=== PATIENT | male | born 1960 | race Caucasian/White ===

== ENCOUNTER 2016-08-20 18:18 | Emergency (ER) | payer MEDICARE, OTHER ==
[~2016-08-20 18:18] MED LIST: ASPIR 8181 MG PO; LORTAB 5-325 M1 EACH PO; LYRICA100 MG PO; METOPROLOL SUCC25 MG PO; PLAVIX 75 MG TA75 MG PO; PROAIR HFA8.5 GM INH; PROTONIX40 MG PO; ZOFRAN4 MG PO
[2016-08-20 20:10] LABS: HEMOGLOBIN 15.5 gm/dl (14.0-17.5); RED BLOOD COUNT 4.98 M/UL (4.20-5.50); WHITE BLOOD COUNT 8.3 K/UL (4.5-11.0)
[2016-08-20 20:35] LABS: BUN/CREATININE RATIO 11 (0-10)
[2017-03-04] MEDS ORDERED: ALBUTEROL0.63 MG/3 INH (01:25)
[2017-03-04] MEDS ORDERED: VENTOLIN HFA 66.7 GM INH (01:26)
[2017-03-04] MEDS ORDERED: LIPITOR TAB 1010 MG PO (13:33)
[2017-03-04] MEDS ORDERED: PLAVIX 75 MG TA75 MG PO (13:33)
== END 2016-08-21 01:04 | disposition home or self-care (01) ==
LOC: ER1 18:18
PROVIDERS: Physician Assistant
DX: R07.9 Chest pain, unspecified (principal); J10.1 Influenza due to other identified influenza virus with other respiratory manifestations; R11.0 Nausea; R06.02 Shortness of breath; I25.2 Old myocardial infarction; I10 Essential (primary) hypertension; Z88.0 Allergy status to penicillin
CPT/HCPCS: 36415; 71010; 80053; 82550; 82553; 83874; 83880; 84484; 85025; 93005; 96374; 96375; 99285; J2270; J2405; J7050; Q9963

== ENCOUNTER 2016-11-11 14:24 | Emergency (ER) | payer MEDICARE, OTHER ==
[2016-11-11 14:46] LABS: HEMOGLOBIN 16.2 gm/dl (14.0-17.5); RED BLOOD COUNT 5.26 M/UL (4.20-5.50); WHITE BLOOD COUNT 7.7 K/UL (4.5-11.0)
[2016-11-11 15:06] LABS: BUN/CREATININE RATIO 19 (0-10)
[2017-03-04] MEDS ORDERED: ALBUTEROL0.63 MG/3 INH (01:25)
[2017-03-04] MEDS ORDERED: VENTOLIN HFA 66.7 GM INH (01:26)
[2017-03-04] MEDS ORDERED: PLAVIX 75 MG TA75 MG PO (13:33)
[2017-03-04] MEDS ORDERED: LIPITOR TAB 1010 MG PO (13:33)
== END 2016-11-11 19:52 | disposition home or self-care (01) ==
LOC: ER1 14:24
PROVIDERS: Emergency Medicine
DX: R07.9 Chest pain, unspecified (principal); M25.512 Pain in left shoulder; R11.0 Nausea; R06.02 Shortness of breath; I10 Essential (primary) hypertension; Z87.891 Personal history of nicotine dependence; Z88.0 Allergy status to penicillin
CPT/HCPCS: 36415; 71010; 80053; 82550; 82553; 83874; 84484; 85025; 85379; 85610; 85730; 93005; 96361; 96374; 96375; 99285; J2270; J2405; J7030; J7050; Q9963

== ENCOUNTER 2020-10-02 13:09 | Observation (INO) | payer MEDICARE, MEDICAID ==
[~2020-10-02] VITALS: Ht 167.6 cm; Wt 124.7 kg
[~2020-10-02 13:09] MED LIST changes: +ALBUTEROL0.63 MG/3 INH; +ALBUTEROL1.25 MG/3 INH; +ALBUTEROL2.5 MG/3 M INH; +AMIODARONE HCL200 MG PO; +ASPIRIN CHEWABL81 MG PO; +ASPIRIN EC81 MG PO; +ATORVASTATIN CA20 MG PO; +BACTRIM DS TAB1 EACH PO; +CORDARONE 200M200 MG PO; +ELIQUIS 5 MG TAB5 MG PO; +FLEXERIL 10 MG10 MG PO; +IMDUR ER TAB 3030 MG PO; +IMDUR ER TAB 6060 MG PO; +IPRAT-ALBUT 0.5-3 ML NEB; +KEFLEX CAP 500500 MG PO; +LIPITOR TAB 1010 MG PO; +LIPITOR TAB 2020 MG PO; +LIPITOR40 MG PO; +LOPRESSOR 25 MG25 MG PO; +METOPROLOL SUCC50 MG PO; +NITROSTAT0.4 MG SL; +NORVASC 5 MG TAB5 MG PO; +PLAVIX75 MG PO; +PLETAL 100 MG100 MG PO; +SPIRIVA HANDIH18 MCG INH; +SYMBICORT 16010.2 GM INH; +VENTOLIN HFA 66.7 GM INH; +VENTOLIN/PROVE0.5 ML INH
[2020-10-02 14:06] LABS: HEMOGLOBIN 16.4 gm/dl (14.0-17.5); RED BLOOD COUNT 5.19 M/UL (4.20-5.50); WHITE BLOOD COUNT 8.5 K/UL (4.5-11.0)
[2020-10-02 14:23] LABS: BUN/CREATININE RATIO 11 (0-10)
[2020-10-02] MEDS ORDERED: PACERONE200 MG PO (20:47)
[2020-10-03] MEDS ORDERED: CEFUROXIME500 MG PO (13:46)
[2020-10-03] MEDS ORDERED: ASPIRIN EC81 MG PO (13:46)
[2020-10-03] MEDS ORDERED: PREDNISONE20 MG PO (13:48)
== END 2020-10-03 16:45 | disposition home or self-care (01) ==
LOC: ER1 13:09 → CDU 19:03 → MED SURG 4 19:03 → CDU 19:03 → MED SURG 4 20:35
PROVIDERS: Physician Assistant Medical; ADMIT Internal Medicine Infectious Disease
DX: J44.1 Chronic obstructive pulmonary disease with (acute) exacerbation (principal); J44.0 Chronic obstructive pulmonary disease with (acute) lower respiratory infection; J20.9 Acute bronchitis, unspecified; R07.89 Other chest pain; I25.10 Atherosclerotic heart disease of native coronary artery without angina pectoris; I10 Essential (primary) hypertension; I73.9 Peripheral vascular disease, unspecified; J96.22 Acute and chronic respiratory failure with hypercapnia; J96.21 Acute and chronic respiratory failure with hypoxia; E78.5 Hyperlipidemia, unspecified; Z99.81 Dependence on supplemental oxygen; Z89.611 Acquired absence of right leg above knee; Z87.891 Personal history of nicotine dependence; Z86.711 Personal history of pulmonary embolism; Z95.5 Presence of coronary angioplasty implant and graft; Z87.19 Personal history of other diseases of the digestive system; Z86.79 Personal history of other diseases of the circulatory system; Z88.0 Allergy status to penicillin; Z79.899 Other long term (current) drug therapy; Z20.822 Contact with and (suspected) exposure to COVID-19
CPT/HCPCS: 0240U; 36415; 36600; 71045; 80053; 82550; 82553; 82803; 83874; 83880; 84484; 85025; 85379; 93005; 94640; 94664; 94760; 96372; 96374; 96375; 96376; 99285; G0378; J1650; J1956; J2270; J2405; J2920; Q9967

== ENCOUNTER 2020-11-29 14:55 | Emergency (ER) | payer MEDICARE, OTHER ==
[~2020-11-29 14:55] MED LIST changes: +CEFUROXIME500 MG PO; +PACERONE200 MG PO; +PREDNISONE20 MG PO
[2020-11-29 15:29] LABS: HEMOGLOBIN 15.4 gm/dl (14.0-17.5); RED BLOOD COUNT 4.83 M/UL (4.20-5.50); WHITE BLOOD COUNT 7.4 K/UL (4.5-11.0)
[2020-11-29 16:46] LABS: BUN/CREATININE RATIO 13 (0-10)
== END 2020-11-29 23:58 | disposition short-term general hospital (02) ==
LOC: ER1 14:55
PROVIDERS: Emergency Medicine
DX: T82.868A Thrombosis due to vascular prosthetic devices, implants and grafts, initial encounter (principal); I25.10 Atherosclerotic heart disease of native coronary artery without angina pectoris; J44.9 Chronic obstructive pulmonary disease, unspecified; I10 Essential (primary) hypertension; E78.5 Hyperlipidemia, unspecified; I73.9 Peripheral vascular disease, unspecified; Z88.0 Allergy status to penicillin
CPT/HCPCS: 71045; 80053; 82550; 82553; 83874; 83880; 84484; 85025; 85610; 85730; 93005; 93926; 96374; 96375; 96376; 99285; J1644; J2270; J2405

== ENCOUNTER 2021-02-09 22:06 | Emergency (ER) | payer MEDICARE, OTHER ==
[~2021-02-09] VITALS: Ht 167.6 cm; Wt 120.2 kg
[2021-02-10 00:30] LABS: HEMOGLOBIN 16.1 gm/dl (14.0-17.5); RED BLOOD COUNT 5.11 M/UL (4.20-5.50); WHITE BLOOD COUNT 8.9 K/UL (4.5-11.0)
[2021-02-10 00:45] LABS: BUN/CREATININE RATIO 12 (0-10)
== END 2021-02-10 19:28 | disposition home or self-care (01) ==
LOC: ER1 22:06
PROVIDERS: Physician Assistant
DX: R10.32 Left lower quadrant pain (principal); J44.9 Chronic obstructive pulmonary disease, unspecified; I10 Essential (primary) hypertension; F17.200 Nicotine dependence, unspecified, uncomplicated; Z20.822 Contact with and (suspected) exposure to COVID-19; Z88.0 Allergy status to penicillin
CPT/HCPCS: 80053; 85025; 85379; 85610; 85652; 85730; 86140; 93926; 96374; 96375; 99285; J1644; J2270; J2405; U0002

== ENCOUNTER 2021-02-24 22:04 | Emergency (ER) | payer MEDICARE, OTHER ==
[2021-02-24 23:18] LABS: RED BLOOD COUNT 4.95 M/UL (4.20-5.50); WHITE BLOOD COUNT 8.9 K/UL (4.5-11.0)
[2021-02-24 23:50] LABS: BUN/CREATININE RATIO 14 (0-10)
[2021-02-25] MEDS ORDERED: PROAIR DIGIHAL90 MCG INH (19:47)
[2021-02-25] MEDS ORDERED: ALBUTEROL2.5 MG/3 M NEB (19:48)
[2021-02-25] MEDS ORDERED: METOPROLOL TART25 MG PO (19:50)
[2021-02-25] MEDS ORDERED: CLOPIDOGREL75 MG PO (19:51)
[2021-02-25] MEDS ORDERED: ELIQUIS5 MG PO (19:51)
[2021-02-25] MEDS ORDERED: IBUPROFEN200 MG PO (19:52)
== END 2021-02-25 21:10 | disposition home or self-care (01) ==
LOC: ER1 22:04
PROVIDERS: Emergency Medicine
DX: I73.9 Peripheral vascular disease, unspecified (principal); I25.10 Atherosclerotic heart disease of native coronary artery without angina pectoris; J44.9 Chronic obstructive pulmonary disease, unspecified; I25.2 Old myocardial infarction; Z20.822 Contact with and (suspected) exposure to COVID-19
CPT/HCPCS: 80053; 82550; 82553; 83874; 84484; 85025; 85610; 85730; 93005; 93925; 93971; 94640; 94664; 94760; 96374; 96375; 96376; 99284; J2270; J2405; U0002

== ENCOUNTER 2021-04-12 01:06 | Inpatient (IN) | payer MEDICARE, OTHER ==
[~2021-04-12] VITALS: Ht 167.6 cm; Wt 100.0 kg
[~2021-04-12 01:06] MED LIST changes: +ALBUTEROL2.5 MG/3 M NEB; +CLOPIDOGREL75 MG PO; +ELIQUIS5 MG PO; +IBUPROFEN200 MG PO; +PROAIR DIGIHAL90 MCG INH
[2021-04-12 01:37] LABS: HEMOGLOBIN 16.4 gm/dl (14.0-17.5); RED BLOOD COUNT 5.26 M/UL (4.20-5.50); WHITE BLOOD COUNT 8.5 K/UL (4.5-11.0)
[2021-04-12 01:58] LABS: BUN/CREATININE RATIO 10 (0-10)
--- NOTE | 2021-04-12 09:19 | NUR ---
04/12/[address] GATICA NOTIFIED OF ADMISSION, EXPLAINED MEDICATIONS WERE READY TO BE ACKNOWLEDGED.
[2021-04-12] MEDS ORDERED: ATORVASTATIN CA10 MG PO (11:16)
[2021-04-12] MEDS ORDERED: NITROGLYCERIN0.4 MG SL (11:17)
[2021-04-13 05:38] LABS: HEMOGLOBIN 14.1 gm/dl (14.0-17.5); RED BLOOD COUNT 4.68 M/UL (4.20-5.50); WHITE BLOOD COUNT 11.8 K/UL (4.5-11.0)
[2021-04-13 05:52] LABS: BUN/CREATININE RATIO 13 (0-10)
[2021-04-14 04:38] LABS: BUN/CREATININE RATIO 13 (0-10)
[2021-04-15 04:07] LABS: BUN/CREATININE RATIO 12 (0-10)
[2021-04-15 08:19] LABS: RED BLOOD COUNT 4.54 M/UL (4.20-5.50)
--- NOTE | 2021-04-16 03:09 | NUR ---
PATIENT GOT UP TO BATHROOM AT 0030. PATIENT STATED THAT HE PRESSED THE NURSE CALL BUTTON BUT NOBODY CAME. NO CALL LIGHT FOR THE PATIENT'S ROOM WENT OFF AT THAT TIME. PATIENT REQUESTED THAT NO BED ALARM BE PUT ON AND THAT HE WOULD SIGN OUT AMA IF IT WAS TURNED ON AND STATED THAT HE SHOULDN'T BE TREATED LIKE A CHILD.
[2021-04-16 12:17] LABS: HEMOGLOBIN 14.8 gm/dl (14.0-17.5); RED BLOOD COUNT 4.74 M/UL (4.20-5.50)
[2021-04-16 12:46] LABS: BUN/CREATININE RATIO 13 (0-10)
[2021-04-17 04:09] LABS: HEMOGLOBIN 13.7 gm/dl (14.0-17.5); RED BLOOD COUNT 4.48 M/UL (4.20-5.50); WHITE BLOOD COUNT 9.3 K/UL (4.5-11.0)
[2021-04-18] MEDS ORDERED: MEDROL DOSEPAK 24 MG PO (09:48)
[2021-04-18 10:24] LABS: HEMOGLOBIN 14.8 gm/dl (14.0-17.5); RED BLOOD COUNT 4.71 M/UL (4.20-5.50)
[2021-04-18 10:25] LABS: WHITE BLOOD COUNT 12.4 K/UL (4.5-11.0)
[2021-04-18 10:47] LABS: BUN/CREATININE RATIO 16 (0-10)
== END 2021-04-18 12:05 | disposition home or self-care (01) | DRG 438 ==
LOC: ER1 01:06 → CDU 05:59 → PROG CARE 07:56
PROVIDERS: Internal Medicine; Internal Medicine Gastroenterology; Physician Assistant; Surgery; ADMIT Internal Medicine
PROC: 5A09457 Assistance with Respiratory Ventilation, 24-96 Consecutive Hours, Continuous Positive Airway Pressure (ICD-10-PCS; principal; 2021-04-12)
DX: K85.10 Biliary acute pancreatitis without necrosis or infection (principal); J96.21 Acute and chronic respiratory failure with hypoxia; J96.22 Acute and chronic respiratory failure with hypercapnia; J44.1 Chronic obstructive pulmonary disease with (acute) exacerbation; D68.9 Coagulation defect, unspecified; E87.2 Acidosis; Z20.822 Contact with and (suspected) exposure to COVID-19; E66.01 Morbid (severe) obesity due to excess calories; K80.50 Calculus of bile duct without cholangitis or cholecystitis without obstruction; I11.9 Hypertensive heart disease without heart failure; I25.10 Atherosclerotic heart disease of native coronary artery without angina pectoris; I48.91 Unspecified atrial fibrillation; F41.9 Anxiety disorder, unspecified; F32.A Depression, unspecified; G47.33 Obstructive sleep apnea (adult) (pediatric); I73.9 Peripheral vascular disease, unspecified; Z95.828 Presence of other vascular implants and grafts; Z86.718 Personal history of other venous thrombosis and embolism; Z90.89 Acquired absence of other organs; Z95.5 Presence of coronary angioplasty implant and graft; Z98.890 Other specified postprocedural states; Z82.49 Family history of ischemic heart disease and other diseases of the circulatory system; Z87.891 Personal history of nicotine dependence; Z79.02 Long term (current) use of antithrombotics/antiplatelets; Z79.899 Other long term (current) drug therapy; Z89.611 Acquired absence of right leg above knee; Z68.32 Body mass index [BMI] 32.0-32.9, adult
CPT/HCPCS: 36415; 36600; 71045; 76705; 80048; 80053; 80076; 81001; 82150; 82550; 82553; 82803; 83605; 83690; 83874; 84484; 85025; 85610; 93005; 94640; 94660; 94664; 94760; 96374; 96375; 99285; C9113; J0696; J1650; J2185; J2270; J2405; J2920; J2930; J7030; J7120; Q9967; U0002

== ENCOUNTER 2021-04-23 20:04 | Emergency (ER) | payer MEDICARE, OTHER ==
[~2021-04-23 20:04] MED LIST changes: +ATORVASTATIN CA10 MG PO; +MEDROL DOSEPAK 24 MG PO; +NITROGLYCERIN0.4 MG SL
[2021-04-23 21:18] LABS: HEMOGLOBIN 14.7 gm/dl (14.0-17.5); RED BLOOD COUNT 4.76 M/UL (4.20-5.50); WHITE BLOOD COUNT 10.4 K/UL (4.5-11.0)
[2021-04-23 21:47] LABS: BUN/CREATININE RATIO 12 (0-10)
== END 2021-04-24 00:19 | disposition home or self-care (01) ==
LOC: ER1 20:04
PROVIDERS: Family Medicine
DX: I73.9 Peripheral vascular disease, unspecified (principal); R10.9 Unspecified abdominal pain; I48.91 Unspecified atrial fibrillation; J44.9 Chronic obstructive pulmonary disease, unspecified; Z88.0 Allergy status to penicillin; Z79.01 Long term (current) use of anticoagulants
CPT/HCPCS: 80053; 81001; 82550; 82553; 83605; 83690; 83874; 84484; 85025; 93005; 96374; 96375; 99284; J2270; J2405; Q9967

== ENCOUNTER 2021-09-09 03:07 | Emergency (ER) | payer MEDICARE, OTHER ==
[2021-09-09 03:36] LABS: HEMOGLOBIN 15.8 gm/dl (14.0-17.5); RED BLOOD COUNT 5.21 M/UL (4.20-5.50); WHITE BLOOD COUNT 8.2 K/UL (4.5-11.0)
[2021-09-09 03:57] LABS: BUN/CREATININE RATIO 17 (0-10)
[2021-09-09] MEDS ORDERED: NITROSTAT0.4 MG SL (06:19)
== END 2021-09-09 07:20 | disposition home or self-care (01) ==
LOC: ER1 03:07
PROVIDERS: Family Medicine
DX: R07.89 Other chest pain (principal); I25.2 Old myocardial infarction; J44.9 Chronic obstructive pulmonary disease, unspecified
CPT/HCPCS: 71045; 80053; 82550; 82553; 84484; 85025; 93005; 99285

== ENCOUNTER 2021-12-06 19:22 | Emergency (ER) | payer MEDICARE, OTHER ==
[~2021-12-06] VITALS: Ht 167.6 cm; Wt 117.9 kg
[2021-12-06 19:55] LABS: HEMOGLOBIN 14.7 gm/dl (14.0-17.5); RED BLOOD COUNT 4.76 M/UL (4.20-5.50); WHITE BLOOD COUNT 7.8 K/UL (4.5-11.0)
[2021-12-06 20:19] LABS: BUN/CREATININE RATIO 13 (0-10)
== END 2021-12-07 01:40 | disposition left against medical advice (07) ==
LOC: ER1 19:22 → CDU 12-07 00:37
PROVIDERS: Family Medicine
DX: I25.10 Atherosclerotic heart disease of native coronary artery without angina pectoris (principal); I73.9 Peripheral vascular disease, unspecified; K55.059 Acute (reversible) ischemia of intestine, part and extent unspecified; I48.91 Unspecified atrial fibrillation; Z79.01 Long term (current) use of anticoagulants; E66.9 Obesity, unspecified; I11.9 Hypertensive heart disease without heart failure; F32.9 Major depressive disorder, single episode, unspecified; F41.9 Anxiety disorder, unspecified; Z90.81 Acquired absence of spleen; Z89.611 Acquired absence of right leg above knee; Z87.891 Personal history of nicotine dependence; Z51.81 Encounter for therapeutic drug level monitoring
CPT/HCPCS: 71045; 80053; 82550; 82553; 84484; 85025; 85610; 85730; 93005; 96374; 96375; 99285; J2270; J2405

== ENCOUNTER 2022-01-19 18:49 | Observation (INO) | payer MEDICARE, OTHER ==
[~2022-01-19] VITALS: Ht 167.6 cm; Wt 117.9 kg
[~2022-01-19 18:49] MED LIST changes: -PROAIR DIGIHAL90 MCG INH
[2022-01-19 20:51] LABS: BUN/CREATININE RATIO 15 (0-10)
[2022-01-19 21:14] LABS: RED BLOOD COUNT 5.15 M/UL (4.20-5.50); WHITE BLOOD COUNT 8.5 K/UL (4.5-11.0)
[2022-01-20 04:59] LABS: RED BLOOD COUNT 4.85 M/UL (4.20-5.50); WHITE BLOOD COUNT 9.5 K/UL (4.5-11.0)
[2022-01-20 06:33] LABS: BUN/CREATININE RATIO 17 (0-10)
[2022-01-20] MEDS ORDERED: HEPARIN IV (16:39)
[2022-01-20] MEDS ORDERED: ASPIRIN EC81 MG PO (16:42)
[2022-01-20] MEDS ORDERED: ATORVASTATIN CA20 MG PO (16:42)
--- NOTE | 2022-01-20 17:09 | NUR ---
Report attempted, called [facility] at approximately 1700. Report was not taken, admitting nurse was "settling in another patient". Call back number was given.
[2022-01-20] MEDS ORDERED: MORPHINE SULFATE IV (17:51)
--- NOTE | 2022-01-20 19:42 | NUR ---
REPORT TO KETAN YAN RN AT [facility] AT THIS TIME.
== END 2022-01-20 19:54 ==
LOC: ER1 18:49 → MED SURG 4 21:59 → CDU 21:59 → MED SURG 4 01-20 01:19
PROVIDERS: Physician Assistant; ADMIT Internal Medicine
DX: I21.4 Non-ST elevation (NSTEMI) myocardial infarction (principal); I25.110 Atherosclerotic heart disease of native coronary artery with unstable angina pectoris; I48.0 Paroxysmal atrial fibrillation; J96.11 Chronic respiratory failure with hypoxia; I48.92 Unspecified atrial flutter; I10 Essential (primary) hypertension; I73.9 Peripheral vascular disease, unspecified; E78.5 Hyperlipidemia, unspecified; J44.9 Chronic obstructive pulmonary disease, unspecified; Z95.5 Presence of coronary angioplasty implant and graft; Z86.711 Personal history of pulmonary embolism; Z87.891 Personal history of nicotine dependence; Z99.81 Dependence on supplemental oxygen; Z79.01 Long term (current) use of anticoagulants; Z79.82 Long term (current) use of aspirin; Z79.899 Other long term (current) drug therapy; Z88.0 Allergy status to penicillin; Z82.49 Family history of ischemic heart disease and other diseases of the circulatory system
CPT/HCPCS: ECHO; 36415; 71045; 80053; 80061; 82550; 82553; 83036; 83735; 83880; 84484; 85025; 85379; 85610; 85730; 93005; 93306; 94664; 94760; 96372; 96374; 96375; 96376; 99152; 99153; 99285; C1769; C1894; G0378; J1644; J1650; J2250; J2270; J2370; J2405; J3010; J7040; Q9967

== ENCOUNTER 2022-02-04 15:09 | Emergency (ER) | payer MEDICARE, OTHER ==
[~2022-02-04 15:09] MED LIST changes: +HEPARIN IV; +MORPHINE SULFATE IV
[2022-02-04 15:50] LABS: HEMOGLOBIN 15.6 gm/dl (14.0-17.5); WHITE BLOOD COUNT 10.5 K/UL (4.5-11.0)
[2022-02-04 16:18] LABS: BUN/CREATININE RATIO 12 (0-10)
== END 2022-02-04 20:27 ==
LOC: ER1 15:09
DX: K80.70 Calculus of gallbladder and bile duct without cholecystitis without obstruction (principal); R07.9 Chest pain, unspecified; I25.10 Atherosclerotic heart disease of native coronary artery without angina pectoris; I10 Essential (primary) hypertension; J44.9 Chronic obstructive pulmonary disease, unspecified; Z20.822 Contact with and (suspected) exposure to COVID-19
CPT/HCPCS: 71045; 80053; 82550; 82553; 84484; 85025; 93005; 96374; 96375; 96376; 99285; J2270; J2405; Q9967; U0002